=== PATIENT | female | born 1970 | race Caucasian/White ===

== ENCOUNTER 2016-09-26 07:06 | Emergency (ER) | payer OTHER ==
[2016-09-26] MEDS ORDERED: LETS SOLN TOPICAL 1 EA SYR TP ONE ×2 (07:25→07:34)
--- NOTE | 2016-09-26 07:31 | UCPHY ---
H & P Time Seen by Provider: 09/26/16 07:13 Patient Type: New HPI/ROS: 45-year-old female presents complaining of dropped a knife on her foot this morning with laceration to her right foot. Review of systems General no fever no chills no weakness HEENT no eye pain no eye discharge. No eye redness, no sore throat Respiratory no cough, no shortness of breath Cardiac no chest pain, no peripheral edema GI no abdominal pain, no diarrhea, no constipation, no nausea, no vomiting no flank pain, no hematuria, no dysuria Musculoskeletal no myalgias, no joint pain Heme no easy bruising, no easy bleeding Endo no polyuria, no polydipsia Skin no rashes, no pruritus Neuro no syncope, no dizziness, no headaches Psych is no suicidal ideation, no homicidal ideation Past Medical/Surgical History: Noncontributory Social History: Occasional alcohol denies drug use Smoking Status: Never smoked Physical Exam: Alert and oriented in no acute distress nontoxic appearance, afebrile Atraumatic normocephalic Neck no JVD Lungs clear to auscultation, no respiratory distress Heart regular rate and rhythm Extremities no cyanosis clubbing edema Right foot-full range of motion good capillary refill sensation intact 1 cm laceration distal to dorsum of foot between 2nd and 3rd metatarsal, non gaping Constitutional: Initial Vital Signs Temperature (C) 36.9 C 09/26/16 07:20 Heart Rate 57 L 09/26/16 07:20 Respiratory Rate 16 09/26/16 07:20 Blood Pressure 125/78 H 09/26/16 07:20 O2 Sat (%) 98 09/26/16 07:20 O2 Delivery Mode Room Air Allergies/Adverse Reactions: Penicillins Allergy (Verified 09/26/16 07:23) Home Medications: Medication Instructions Recorded NK [No Known Home Meds] 09/26/16 Medical Decision Making Procedures: Procedure note-laceration The wound was irrigated with copious amounts of saline. Lidocaine 1% was used for local anesthetic. Dermabond was used to approximate wound Patient tolerated procedure well. ED Course/Re-evaluation: Patient seen and evaluated for small right foot laceration Wound cleansed Tetanus given Dermabond applied to wound - Data Points Medications Given: Discontinued Medications Diphtheria/Tetanus/Acell Pertussis (Boostrix) 0.5 ml IM .ONCE ONE Stop: 09/26/16 08:00 Last Admin: 09/26/16 08:03 Dose: 0.5 ml Tetracaine/Epinephrine/Lidocaine (Lets Soln Topical) 1 ea TP EDNOW ONE Stop: 09/26/16 07:35 Last Admin: 09/26/16 07:28 Dose: 1 ea Departure - Departure Disposition: Home, Routine, Self-Care Clinical Impression: Laceration of right foot Condition: Good Instructions: Skin Adhesive Care (ED), Laceration (ED) Referrals: VJ DE GUZMAN [Primary Care Provider] - As per Instructions - PQRS PQRS Measurement: Not applicable
[2016-09-26] MEDS ORDERED: SKIN ADHESIVE (DERMABOND) 1 EACH TP ONE (07:50)
[2016-09-26] MEDS ORDERED: TDAP ADULT 0.5 ML INJ (BOOSTRIX) IM ONE (07:59)
[2016-09-26 08:07] VITALS: BP 125/67; PULSE 76; RESP 18; TEMP 98.2; O2SAT 95
== END 2016-09-26 08:09 | disposition home or self-care (01) ==
LOC: CED 07:06
DX: S91.311A Laceration without foreign body, right foot, initial encounter (principal); W26.0XXA Contact with knife, initial encounter
CPT/HCPCS: 12001-PO; 99203-PO; G0463-PO